=== PATIENT | female | born 1960 | race African-American/Black ===

== ENCOUNTER 2020-01-27 13:08 | Emergency (ER) | payer MEDICAID ==
[~2020-01-27] VITALS: Ht 160 cm; Wt 89.8 kg
[~2020-01-27 13:08] MED LIST: AMLO5TAB4 PO; HYDR25TA PO
[2020-01-27 14:43] LABS: BASOPHILS % 0.5 % (0.0-2.0); EOSINOPHILS % 1.3 % (0.0-5.0); HEMATOCRIT. 42.6 % (36.0-48.0); HEMOGLOBIN. 14.3 g/dL (12.0-16.0); LYMPHOCYTES % 39.2 % (20.0-50.0); MEAN CORPUSCULAR HEMOGLOBIN 33.1 pg (28.0-32.0); MEAN CORPUSCULAR VOLUME 98.6 fL (81.0-99.0); MEAN PLATELET VOLUME 8.1 fl (7.4-10.4); MONOCYTES % 7.5 % (2.0-8.0); NEUTROPHILS % 51.5 % (40.0-76.0); PLATELET 274 x1000/uL (130-400); RED BLOOD CELL COUNT 4.32 mill/uL (4.2-5.4); RED CELL DISTRIBUTION WIDTH 13.1 % (11.6-14.6)
[2020-01-27 14:49] LABS: CHLORIDE 104 mEq/L (98-107)
[2020-01-27 14:52] LABS: PARTIAL THROMBOPLASTIN TIME 26.3 sec (23.4-31.0); PROTHROMBIN TIME 10.7 sec (9.6-11.0)
[2020-01-27] MEDS ORDERED: ASPIRIN 325MG EC TABLET PO ONE (16:00)
[2020-01-27 17:30] VITALS: BP 158/99
[2020-01-27] MEDS ORDERED: ENOXAPARIN 40MG/0.4ML SYR SUBCUT SCH (17:45)
[2020-01-27] MEDS ORDERED: AMLODIPINE 10MG TABLET PO SCH (17:45)
[2020-01-27] MEDS ORDERED: HYDROMORPHONE HCL/PF 2MG/ML CPJ IV PRN (17:45)
[2020-01-27] MEDS ORDERED: DOCUSATE SODIUM 100MG CAPSULE PO PRN (17:45)
[2020-01-27] MEDS ORDERED: CLONIDINE 0.1MG TABLET PO PRN (17:45)
[2020-01-27] MEDS ORDERED: ACETAMINOPHEN 325MG TABLET PO PRN (17:45)
[2020-01-27] MEDS ORDERED: GUAIFENESIN 200MG/10ML SUGAR FREE UDC PO PRN (17:45)
[2020-01-27] MEDS ORDERED: MAGNESIUM/ALUMINUM HYDROXIDE/SIMETHICONE 30ML UDC PO PRN (17:45)
[2020-01-27] MEDS ORDERED: ONDANSETRON HCL 4MG/2ML INJ IV PRN (17:45)
[2020-01-27 20:24] LABS: CLARITY URINE CLEAR (CLEAR); COLOR URINE YELLOW (YELLOW); KETONES URINE NEGATIVE (NEGATIVE); LEUKOCYTE ESTERASE URINE 1+ (NEGATIVE); NITRITE URINE NEGATIVE (NEGATIVE); OCCULT BLOOD URINE NEGATIVE (NEGATIVE); PROTEIN URINE TRACE (NEGATIVE); SPECIFIC GRAVITY URINE 1.025 (1.005-1.030); UROBILINOGEN URINE 0.2 E.U./dL (0.2-1.0)
== END 2020-01-27 20:13 | disposition home or self-care (01) ==
LOC: ER 13:08 → CANRESERV 21:03 → ENRESERV 21:03 → CANBEDREQ 22:40
DX: R21 Rash and other nonspecific skin eruption (principal); R20.0 Anesthesia of skin; N30.90 Cystitis, unspecified without hematuria; I10 Essential (primary) hypertension; Z88.5 Allergy status to narcotic agent; Z79.899 Other long term (current) drug therapy
CPT/HCPCS: 36415; 70551; 71045; 80053; 81003; 83880; 84484; 85025; 93005; 93970; 99285

== ENCOUNTER 2025-09-13 08:23 | Emergency (ER) | payer BC, MEDICAID ==
[~2025-09-13] VITALS: Ht 162.6 cm; Wt 88.0 kg
[~2025-09-13 08:23] MED LIST changes: -AMLO5TAB4 PO; +AMLO5TAB6 PO
[2025-09-13 08:27] VITALS: O2SAT 99
[2025-09-13 09:38] LABS: BASOPHILS % 0.4 % (0.0-2.0); EOSINOPHILS % 1.8 % (0.0-5.0); HEMATOCRIT. 42.1 % (36.0-48.0); HEMOGLOBIN. 13.1 g/dL (12.0-16.0); LYMPHOCYTES % 36.7 % (20.0-50.0); MEAN PLATELET VOLUME 8.4 fl (7.4-10.4); MONOCYTES % 8.6 % (2.0-8.0); NEUTROPHILS % 52.5 % (40.0-76.0); PLATELET 178 x1000/uL (130-400); RED BLOOD CELL COUNT 4.07 mill/uL (4.2-5.4); RED CELL DISTRIBUTION WIDTH 13.4 % (11.6-14.6)
[2025-09-13 09:55] LABS: INR 1.0
[2025-09-13 10:00] LABS: ASPARTATE AMINOTRANSFERASE 44 IU/L (<34); BILIRUBIN DIRECT 0.1 mg/dL (<=3.0); BILIRUBIN TOTAL 0.4 mg/dL (0.1-1.0); PROTEIN TOTAL 7.6 g/dL (6.0-8.3)
[2025-09-13] MEDS: ONDANSETRON HCL 4MG/2ML INJ IV ONE (10:01)
[2025-09-13] MEDS: MORPHINE SULFATE 4 MG/ML INJ (FOR IV/IM USE) IV ONE (10:01)
[2025-09-13] MEDS: FAMOTIDINE 20MG/2ML VIAL IV ONE (10:01)
[2025-09-13 10:07] LABS: CREATININE 0.9 mg/dL (0.6-1.0); UREA NITROGEN BLOOD 11 mg/dL (9-23)
[2025-09-13 10:08] LABS: TROPONIN I HIGH SENSITIVITY 4 ng/L (3.0-34)
[2025-09-13] MEDS: LABETALOL 5MG/ML 4ML INJ IV ONE ×2 (10:31→18:41)
[2025-09-13] MEDS: HYDRALAZINE 20MG/ML VIAL IV ONE (11:38)
[2025-09-13 12:34] LABS: TROPONIN I HIGH SENSITIVITY < 4 ng/L (3.0-34)
[2025-09-13] MEDS ORDERED: MAGNESIUM/ALUMINUM HYDROXIDE/SIMETHICONE 30ML UDC PO PRN (14:30)
[2025-09-13] MEDS ORDERED: ACETAMINOPHEN 325MG TABLET PO PRN (14:30)
[2025-09-13] MEDS ORDERED: HYDROCODONE/ACETAMINOPHEN 5/325MG TABLET PO PRN (14:30)
[2025-09-13] MEDS ORDERED: ZOLPIDEM TARTRATE 5MG TABLET PO PRN (14:30)
[2025-09-13] MEDS ORDERED: ONDANSETRON HCL 4MG/2ML INJ IV PRN (14:30)
[2025-09-13] MEDS ORDERED: CLONIDINE 0.1MG TABLET PO PRN (14:30)
[2025-09-13] MEDS ORDERED: HYDRALAZINE 20MG/ML VIAL IV PRN (14:45)
[2025-09-13] MEDS ORDERED: ASPIRIN 81MG TABLET PO NR (15:45)
[2025-09-13] MEDS ORDERED: AMLODIPINE 5MG TABLET PO SCH (16:00)
[2025-09-13] MEDS ORDERED: ESMOLOL 2500MG PREMIX 250 ML IV PRN (16:00)
[2025-09-13] MEDS: ESMOLOL 2500MG PREMIX 250 ML IV ONE (16:13)
[2025-09-13 16:14] VITALS: TEMP 36.7
[2025-09-13] MEDS: IOHEXOL-350 100 ML BOTTLE ONE (16:18)
[2025-09-13] MEDS ORDERED: NICARDIPINE 40MG/200ML PREMIX 200 ML IV STA (16:55)
[2025-09-13] MEDS ORDERED: ISOSORBIDE MONONITRATE 60MG TABLET SR 24HR PO SCH (17:00)
[2025-09-13 18:34] VITALS: PULSE 65; RESP 18; O2SAT 96
[2025-09-13 18:41] VITALS: BP 177/97
[2025-09-13] MEDS ORDERED: IOHEXOL-350 100 ML BOTTLE ONE (20:41)
[2025-09-13] MEDS ORDERED: ATORVASTATIN CALCIUM 40MG TABLET PO SCH (21:00)
[2025-09-13] MEDS ORDERED: ENOXAPARIN 30MG/0.3ML SYR SUBCUT SCH (21:00)
[2025-09-14] MEDS ORDERED: ASPIRIN 81MG TABLET PO SCH (09:00)
[2025-09-14] MEDS ORDERED: PANTOPRAZOLE SODIUM 40 MG/VIAL IV SCH (09:00)
== END 2025-09-13 18:56 | disposition short-term general hospital (02) ==
LOC: ER 08:23 → EDBEDREQTM 12:04 → EDBEDREQ 12:04 → EDBEDREQSVC 16:19 → ER 18:56 → CMPBEDREQ 09-14 08:51
DX: I71.010 Dissection of ascending aorta (principal); I25.110 Atherosclerotic heart disease of native coronary artery with unstable angina pectoris; R07.89 Other chest pain; I16.1 Hypertensive emergency; E78.00 Pure hypercholesterolemia, unspecified; I10 Essential (primary) hypertension; N28.1 Cyst of kidney, acquired; Z79.82 Long term (current) use of aspirin; Z79.899 Other long term (current) drug therapy; Z87.891 Personal history of nicotine dependence; Z88.5 Allergy status to narcotic agent
CPT/HCPCS: 80076; 80048; 83880; 83690; 85025; 85610; 84484; 36415; 74174; 71045; 71275; 93005; 96365; 96375; 96376; 99291; Q9967; Z7610 ×4; J3490 ×2; J1308; J0360; J2405; J2270